=== PATIENT | female | born 1985 | race Caucasian/White ===

== ENCOUNTER 2021-11-30 21:53 | Emergency (ER) | payer MEDICAID ==
[~2021-11-30] VITALS: Ht 162.6 cm; Wt 68.0 kg
[~2021-11-30 21:53] MED LIST: FERR325T23 PO; LABE200T9 PO; METF-414 MT; METO5TAB86 MT; MULT-783 PO
[2021-11-30] MEDS ORDERED: METOCLOPRAMIDE HCL 10MG/2ML VIAL IV STA (23:12)
[2021-11-30] MEDS ORDERED: SODIUM CHLORIDE 0.9% 1,000 ML IV ONE (23:15)
[2021-11-30] MEDS ORDERED: HALOPERIDOL LACTATE 5MG/ML VIAL IM ONE (23:15)
[2021-11-30 23:35] LABS: CHLORIDE 103 mEq/L (98-107)
[2021-11-30 23:43] LABS: BASOPHILS % 0.4 % (0.0-2.0); EOSINOPHILS % 0.6 % (0.0-5.0); HEMATOCRIT. 32.7 % (36.0-48.0); HEMOGLOBIN. 10.5 g/dL (12.0-16.0); LYMPHOCYTES % 12.9 % (20.0-50.0); MEAN CORPUSCULAR VOLUME 83.7 fL (81.0-99.0); MEAN PLATELET VOLUME 9.3 fl (7.4-10.4); MONOCYTES % 5.3 % (2.0-8.0); NEUTROPHILS % 80.8 % (40.0-76.0); PLATELET 222 x1000/uL (130-400); RED CELL DISTRIBUTION WIDTH 19.6 % (11.6-14.6)
[2021-12-01 03:00] VITALS: BP 148/82
[2021-12-01] MEDS ORDERED: METO-293 MT (03:09)
== END 2021-12-01 03:20 | disposition home or self-care (01) ==
LOC: ER 21:53
DX: E11.43 Type 2 diabetes mellitus with diabetic autonomic (poly)neuropathy (principal); K31.84 Gastroparesis; R10.9 Unspecified abdominal pain; R11.2 Nausea with vomiting, unspecified; D64.9 Anemia, unspecified; I10 Essential (primary) hypertension; Z79.899 Other long term (current) drug therapy
CPT/HCPCS: 36415; 80053; 82010; 82962; 83690; 85025; 96361; 96372; 96374; 99285; J1630; J2765; J7030

== ENCOUNTER 2021-12-02 19:38 | Emergency (ER) | payer MEDICAID ==
[~2021-12-02] VITALS: Ht 157.5 cm; Wt 52.8 kg
[~2021-12-02 19:38] MED LIST changes: +METO-293 MT
[2021-12-02 21:31] LABS: CLARITY URINE CLOUDY (CLEAR); COLOR URINE YELLOW (YELLOW); KETONES URINE 2+ (NEGATIVE); LEUKOCYTE ESTERASE URINE 1+ (NEGATIVE); NITRITE URINE NEGATIVE (NEGATIVE); OCCULT BLOOD URINE 1+ (NEGATIVE); PROTEIN URINE 4+ (NEGATIVE); SPECIFIC GRAVITY URINE 1.017 (1.005-1.030)
[2021-12-03] MEDS ORDERED: NITROFURANTOIN 100MG M/M CAPSULE PO ONE (01:15)
[2021-12-03] MEDS ORDERED: ONDANSETRON 4MG ODT PO ONE (01:15)
[2021-12-03] MEDS ORDERED: NITR-87 MT (04:03)
[2021-12-03 04:13] VITALS: BP 127/85
== END 2021-12-03 04:15 | disposition home or self-care (01) ==
LOC: ER 19:38
DX: R11.2 Nausea with vomiting, unspecified (principal); N39.0 Urinary tract infection, site not specified; D64.9 Anemia, unspecified; E11.9 Type 2 diabetes mellitus without complications; I10 Essential (primary) hypertension; Z98.890 Other specified postprocedural states
CPT/HCPCS: 81003; 81025; 99283; Q0162

== ENCOUNTER 2022-03-11 18:50 | Inpatient (IN) | payer MEDICAID ==
[~2022-03-11] VITALS: Ht 137.2 cm; Wt 45.4 kg
[~2022-03-11 18:50] MED LIST changes: +NITR-87 MT
[2022-03-11] MEDS ORDERED: KETOROLAC 30MG/ML VIAL IV STA (19:02)
[2022-03-11] MEDS ORDERED: ONDANSETRON HCL 4MG/2ML INJ IV STA (19:02)
[2022-03-11] MEDS ORDERED: SODIUM CHLORIDE 0.9% 1,000 ML IV ONE ×2 (19:15→22:45)
[2022-03-11 19:46] LABS: BASOPHILS % 0.3 % (0.0-2.0); HEMOGLOBIN. 7.1 g/dL (12.0-16.0); LYMPHOCYTES % 10.9 % (20.0-50.0); MEAN CORPUSCULAR HEMOGLOBIN 31.6 pg (28.0-32.0); MEAN PLATELET VOLUME 8.9 fl (7.4-10.4); MONOCYTES % 4.8 % (2.0-8.0); PLATELET 327 x1000/uL (130-400); RED BLOOD CELL COUNT 2.23 mill/uL (4.2-5.4); RED CELL DISTRIBUTION WIDTH 16.2 % (11.6-14.6)
[2022-03-11 19:52] LABS: CHLORIDE 93 mEq/L (98-107)
[2022-03-11] MEDS ORDERED: PANTOPRAZOLE SODIUM 40 MG/VIAL IV NR (20:00)
[2022-03-11 20:04] LABS: BETA HYDROXYBUTYRATE 1.7 mMol/L (0.0-0.3); ETHANOL BLOOD < 10 mg/dL
[2022-03-11] MEDS ORDERED: INSULIN LISPRO 100 UNITS/ML SUBCUT ONE (22:45)
[2022-03-11] MEDS ORDERED: MAGNESIUM/ALUMINUM HYDROXIDE/SIMETHICONE 30ML UDC PO PRN (23:15)
[2022-03-11] MEDS ORDERED: DOCUSATE SODIUM 100MG CAPSULE PO PRN (23:15)
[2022-03-11] MEDS ORDERED: ENOXAPARIN 40MG/0.4ML SYR SUBCUT SCH (23:15)
[2022-03-11] MEDS ORDERED: NA PHOS,M-B/NA PHOS,DI-BA ENEMA 118ML PR PRN (23:15)
[2022-03-11] MEDS ORDERED: GUAIFENESIN 200MG/10ML SUGAR FREE UDC PO PRN (23:15)
[2022-03-11] MEDS ORDERED: ONDANSETRON HCL 4MG/2ML INJ IV PRN (23:15)
[2022-03-11] MEDS ORDERED: ACETAMINOPHEN 325MG TABLET PO PRN ×2 (23:15)
[2022-03-11] MEDS ORDERED: IPRATROPIUM/ALBUTEROL 0.5-3(2.5)MG/3ML NEB HHN PRN (23:15)
[2022-03-11] MEDS ORDERED: HYDROCODONE/ACETAMINOPHEN 5/325MG TABLET PO PRN (23:15)
[2022-03-12] VITALS (9 sets, daily range): BP systolic 120–174; BP diastolic 74–102
[2022-03-12] MEDS ORDERED: KETOROLAC 15MG/ML VIAL IV PRN (00:30)
[2022-03-12] MEDS ORDERED: DEXTROSE 50% WATER 50ML SYRINGE IV PRN (01:45)
[2022-03-12] MEDS: SODIUM CHLORIDE 0.9% 1,000 ML IV SCH ×2 (02:23→21:37)
[2022-03-12] MEDS: BLOOD SUGAR DIAGNOSTIC STRIP TEST SCH ×4 (06:05→20:53)
[2022-03-12] MEDS: INSULIN LISPRO 100 UNITS/ML SUBCUT SCH ×4 (06:05→21:39)
[2022-03-12 07:35] LABS: BASOPHILS % 0.3 % (0.0-2.0); EOSINOPHILS % 0.4 % (0.0-5.0); LYMPHOCYTES % 20.8 % (20.0-50.0); MEAN CORPUSCULAR HEMOGLOBIN 32.5 pg (28.0-32.0); MEAN CORPUSCULAR VOLUME 95.6 fL (81.0-99.0); MEAN PLATELET VOLUME 8.8 fl (7.4-10.4); MONOCYTES % 8.6 % (2.0-8.0); NEUTROPHILS % 69.9 % (40.0-76.0); PLATELET 314 x1000/uL (130-400); RED BLOOD CELL COUNT 1.94 mill/uL (4.2-5.4); RED CELL DISTRIBUTION WIDTH 16.9 % (11.6-14.6)
[2022-03-12 07:51] LABS: CHLORIDE 107 mEq/L (98-107)
[2022-03-12 08:06] LABS: HEMATOCRIT. 18.5 % (36.0-48.0); HEMOGLOBIN. 6.3 g/dL (12.0-16.0)
[2022-03-12] MEDS ORDERED: POTASSIUM CHLORIDE 20MEQ TABLET SR PO SCH (09:45)
[2022-03-12] MEDS ORDERED: LOPERAMIDE 2MG/15ML UDC PO PRN (10:00)
[2022-03-12] MEDS ORDERED: LOPERAMIDE HCL 2MG CAPSULE PO PRN (10:00)
[2022-03-12 10:21] LABS: T4 FREE 1.49 ng/dL (0.76-1.46)
[2022-03-12] MEDS: CLONIDINE 0.1MG TABLET PO PRN (13:44)
[2022-03-12] MEDS ORDERED: NALOXONE HCL 0.4MG/ML VIAL IV PRN (18:15)
[2022-03-12 19:30] LABS: HEMATOCRIT 26.1 % (36.0-48.0); HEMOGLOBIN 8.8 g/dL (12.0-16.0)
[2022-03-13] VITALS: BP 130/70
[2022-03-13 04:00] VITALS: BP 160/95
[2022-03-13] MEDS: BLOOD SUGAR DIAGNOSTIC STRIP TEST SCH ×2 (06:20→12:12)
[2022-03-13] MEDS: CLONIDINE 0.1MG TABLET PO PRN (06:20)
[2022-03-13] MEDS: INSULIN LISPRO 100 UNITS/ML SUBCUT SCH ×2 (06:20→12:18)
[2022-03-13 08:00] VITALS: BP 128/77
[2022-03-13 12:00] VITALS: BP 119/72
[2022-03-13 16:00] VITALS: BP 122/71
== END 2022-03-13 15:56 | disposition home or self-care (01) | DRG 532 ==
LOC: ER 18:50 → MICUSO 22:40 → ENRESERV 23:19 → 8WST 03-12 01:14
PROVIDERS: ADMIT Hospitalist; ATTEND Hospitalist
PROC: 30233N1 Transfusion of Nonautologous Red Blood Cells into Peripheral Vein, Percutaneous Approach (ICD-10-PCS; principal; 2022-03-12)
DX: D25.9 Leiomyoma of uterus, unspecified (principal); E11.00 Type 2 diabetes mellitus with hyperosmolarity without nonketotic hyperglycemic-hyperosmolar coma (NKHHC); N94.6 Dysmenorrhea, unspecified; E44.1 Mild protein-calorie malnutrition; N80.03 Adenomyosis of the uterus; D62 Acute posthemorrhagic anemia; I10 Essential (primary) hypertension; R00.0 Tachycardia, unspecified; N92.0 Excessive and frequent menstruation with regular cycle; N94.10 Unspecified dyspareunia; E87.5 Hyperkalemia; Z98.891 History of uterine scar from previous surgery; Z68.24 Body mass index [BMI] 24.0-24.9, adult; Z79.899 Other long term (current) drug therapy
CPT/HCPCS: 36415; 71045; 76830; 76856; 80053; 80320; 82010; 82962; 83036; 83540; 83550; 83605; 83735; 83880; 84439; 84443; 84484; 85014; 85018; 85025; 85379; 86850; 86900; 86920; 93005; 99291; C9113; J1815; J1885; J2405; J7030; P9016; G0480